=== PATIENT | female | born 2000 ===

== ENCOUNTER 2024-08-16 09:09 | Day surgery (SDC) | payer OTHER ==
[2024-08-08 09:27] LABS: BASO % 0.5 % (0.1-1.2); EOS # 0.05 (0.04-0.54); EOS % 0.8 % (0.7-7.0); HEMATOCRIT 41.1 % (34.1-44.9); HEMOGLOBIN 14.5 g/dL (11.2-15.7); LYMPH # 1.26 (1.18-3.74); LYMPH % 19.4 % (19.3-53.1); MEAN CORPUSCULAR HEMOGLOBIN 29.4 pg (25.6-32.2); MONO # 0.37 (0.24-0.82); MONO % 5.7 % (4.7-12.5); NEUT # 4.78 (1.56-6.13); NEUT % 73.4 % (34.0-71.1); PLATELET COUNT 294 K/uL (163-369); RED BLOOD COUNT 4.94 M/uL (3.93-5.22); RED CELL DISTRIBUTION WIDTH 11.9 % (11.6-14.4)
[2024-08-08 09:31] LABS: URINE APPEARANCE Clear; URINE BILIRRUBIN Negative (NEGATIVE); URINE BLOOD Small; URINE COLOR Yellow; URINE GLUCOSE Negative (NEGATIVE); URINE KETONE Trace (NEGATIVE); URINE LEUKOCYTE Negative; URINE NITRATE Negative; URINE PROTEIN Negative (NEGATIVE); URINE UROBILINOGEN 0.2 E.U./dl
[2024-08-08 09:32] LABS: URINE BACTERIA 1970.5 uL (0.0-1933); URINE EPITHELIAL CELLS 86.6 uL (0.0-38.8); URINE RBC 21.5 uL (0.0-20.8); URINE WBC 19.6 uL (0.0-23.2)
[2024-08-08 09:41] LABS: PARTIAL THROMBOPLASTIN TIME 29.4 SECONDS (22.0-34.0); PROTHROMBIN TIME 10.9 SECONDS (9.0-11.5)
[2024-08-08 09:56] LABS: URINE CAST 0.14 uL (0.0-1.40)
[2024-08-08 12:45] LABS: BILIRUBIN TOTAL 0.45 mg/dL (0.3-1.2); CALCIUM 9.4 mg/dL (8.5-10.1); CREATININE SERUM 0.64 mg/dL (0.55-1.02); GFR 113.06; GLOBULINA 3.2 G/DL (2.4-3.5); POTASSIUM 4.11 mEq/L (3.5-5.1); TOTAL PROTEIN 7.2 gm/dL (6.4-8.2)
[2024-08-16] MEDS ORDERED: POVIDONE-IODINE 118 ML BOTT TOP ONE (11:12)
[2024-08-16] MEDS ORDERED: LIDOCAINE HCL 1%/EPINEPHRINE 20ML VIAL IJ ONE (11:36)
[2024-08-16] MEDS ORDERED: KETOROLAC TROMETHAMINE 30 MG VIAL IV STA (12:05)
[2024-08-16] MEDS ORDERED: KETOROLAC TROMETHAMINE 30 MG VIAL ONE (13:42)
== END 2024-08-16 14:55 | disposition home or self-care (01) ==
LOC: CIR.AMB 09:09
PROVIDERS: ATTEND Obstetrics & Gynecology
DX: T83.32XA Displacement of intrauterine contraceptive device, initial encounter (principal); N93.8 Other specified abnormal uterine and vaginal bleeding